=== PATIENT | male | born 2005 | race Caucasian/White ===

== ENCOUNTER 2024-03-20 10:28 | Emergency (ER) | payer SELFPAY ==
[2024-03-20] MEDS ORDERED: LORazepam 2 MG/ML VIAL ONE (11:10)
[2024-03-20] MEDS ORDERED: NA CHLORIDE 0.9% 1,000 ML ONE (11:10)
[2024-03-20 11:30] LABS: Absolute Lymphocytes (CBC) 1.6 K/uL (0.7-4.9); Absolute Monocytes 0.7 K/uL (0.1-1.3); Basophils % 0.4 % (0-1.3); Eosinophils % 0.1 % (0-4.4); Hematocrit 47.2 % (39.6-49.0); Hemoglobin 15.9 g/dL (13.6-17.9); Lymphocytes % 16.8 % (15.3-44.8); MCH 30.4 pg (27.0-35.0); MCHC 33.7 g/dL (32.0-36.0); MCV 90.1 fL (80-100); MPV 11.4 fL (7.6-11.3); Neutrophils % 74.7 % (41.7-73.7); Platelets 146 thou/uL (152-406); RBC Red Blood Cell Count 5.24 M/uL (4.33-5.43); Red Cell Distribution Width 12.7 % (12.1-15.2)
[2024-03-20 11:38] LABS: PT Prothrombin Time 12.7 SECONDS (9.4-12.5); Protime INR 1.14
[2024-03-20 11:39] LABS: PTT, Activated Partial Thromb 30.1 SECONDS (24.3-36.9)
[2024-03-20 11:52] LABS: ALT/SGPT 42 U/L (16-61); AST/SGOT 55 U/L (15-37); Albumin 4.2 g/dL (3.4-5.0); Albumin/Globulin Ratio 1.3 (1.1-1.8); Alkaline Phosphatase 85 U/L (45-117); Anion Gap 8.2 mEq/L (5.0-15.0); BUN Blood Urea Nitrogen 10 mg/dL (7-18); Bicarbonate 29 mEq/L (21-32); Bilirubin Direct 0.2 mg/dL (0-0.2); Bilirubin Indirect, Calculated 0.3 mg/dL (0.2-0.8); Bilirubin Total 0.5 mg/dL (0.2-1.0); Globulin 3.3 g/dL (2.3-3.5); Glomerular Filtration Rate 131 ml/min (=/>90); Glucose Level 120 mg/dL (74-106); Potassium 3.2 mEq/L (3.5-5.1); Protein, Total 7.5 g/dL (6.4-8.2); Sodium Level 137 mEq/L (136-145)
--- NOTE | 2024-03-20 15:38 | ER ---
Nurse's Notes [facility] Name: Brandt Tracey Age: 18 yrs Sex: Male : 2005 Arrival Date: 03/20/2024 Time: 10:28 Bed 5 Private MD: Diagnosis: Adverse effect of synthetic marijuana;Adverse effect of dextromethorphan overdose, intentional, recreational Presentation: 03/20 10:51 Chief complaint: Parent and/or Guardian states: pt took 600 mg of dextromethorphan on iw Tuesday to get high, he has been hallucinating and not sleeping since then, feels paranoid, also has been hitting his weed pen , denies SI or HI. Coronavirus screen: At this time, the client does not indicate any symptoms associated with coronavirus-19. Ebola Screen: No symptoms or risks identified at this time. Initial Sepsis Screen: Does the patient meet any 2 criteria? No. Patient's initial sepsis screen is negative. Does the patient have a suspected source of infection? No. Patient's initial sepsis screen is negative. Risk Assessment: Do you want to hurt yourself or someone else? Patient reports no desire to harm self or others. Onset of symptoms was March 17, 2024. 10:51 Method Of Arrival: Ambulatory iw 10:51 Acuity: BRIGETTE 3 iw Historical: - Allergies: 10:54 No Known Allergies; iw - Home Meds: 10:54 None [Active]; iw - PMHx: 10:54 None; iw - PSHx: 10:54 None; iw - Immunization history:: Adult Immunizations up to date. - Infectious Disease History:: Denies. - Family history:: not pertinent. - Hospitalizations: : No recent hospitalization is reported. - Social history:: Smoking status: Patient denies any tobacco usage or history of. Screenin:48 [facility] ED Fall Risk Assessment (Adult) History of falling in the last 3 months, mb9 including since admission No falls in past 3 months (0 pts) Confusion or Disorientation No (0 pts) Intoxicated or Sedated No (0 pts) Impaired Gait No (0 pts) Mobility Assist Device Used No (0 pt) Altered Elimination No (0 pt) Score/Fall Risk Level 0 - 2 = Low Risk Oriented to surroundings, Maintained a safe environment, Educated pt \T\ family on fall prevention, incl call for assistance when getting out of bed. Abuse screen: Denies threats or abuse. Nutritional screening: No deficits noted. Tuberculosis screening: No symptoms or risk factors identified. Assessment: 14:34 Reassessment: Patient appears in no apparent distress at this time. Patient and/or mb9 family updated on plan of care and expected duration. Pain level reassessed. Patient is alert, oriented x 3, equal unlabored respirations, skin warm/dry/pink. Vital Signs: 10:51 BP 164 / 97; Pulse 102; Resp 16; Temp 98.1; Pulse Ox 98% on R/A; Weight 72.57 kg; iw Height 5 ft. 8 in. ; 12:35 BP 152 / 79; Pulse 99; Resp 18; Pulse Ox 100% on R/A; mb9 16:08 BP 133 / 73; Pulse 85; Resp 18; Pulse Ox 100% on R/A; mb9 10:51 Body Mass Index 24.33 (72.57 kg, 172.72 cm) iw ED Course: 10:33 Patient arrived in ED. mr 10:34 Kodak Mackenzie MD is Attending Physician. rn 10:35 Brad Huerta, THEODORA is Primary Nurse. bp 10:54 Triage completed. iw 11:05 Poison control was notified. Spoke with [facility] #[phone]. [facility] 11:48 Bed in low position. Call light in reach. Side rails up X 1. Adult w/ patient. Provided joana Education on: press call light if needing anything. Client placed on continuous cardiac and pulse oximetry monitoring. NIBP monitoring applied. basket person on. 11:48 Initial lab(s) drawn, by ED staff, sent to lab. EKG done, by ED staff, reviewed by joana Mackenzie MD. Inserted saline lock: 20 gauge in right forearm, using aseptic technique. Blood collected. Flushed with 10 mL NS. 11:49 Arm band placed on. mb9 16:08 No provider procedures requiring assistance completed. IV discontinued, intact, mbLeora bleeding controlled, No redness/swelling at site. Pressure dressing applied. Administered Medications: 11:40 Drug: Ativan IVP 1 mg IVP once Route: IVP; Site: right forearm; mb9 16:08 Follow up: Response: No adverse reaction mb9 11:47 Drug: NS 0.9% IV 1000 ml IV at 1000 ml once Route: IV; Rate: 1000 ml; Site: right mb9 forearm; 16:08 Follow up: Response: No adverse reaction; IV Status: Completed infusion mb9 Medication: 11:48 VIS not applicable for this client. [email or web address] Outcome: 15:38 Discharge ordered by . theodora 16:08 Discharged to home ambulatory, with family, joana 16:08 Condition: stable 16:08 Discharge instructions given to patient, Instructed on discharge instructions, follow up and referral plans. Demonstrated understanding of instructions, follow-up care, 16:09 Patient left the ED. [email or web address] Signatures: Iza Dobson, Reg Reg mr Cary Roe, RN RN Kodak Haynes MD MD rn Peltier, Brian, RN RN bp Wilkerson, Mary Beth, RN RN mb9 Reddick, Jess [facility]
--- NOTE | 2024-03-20 15:38 | EDPHYS ---
Physician Documentation [facility] Name: Brandt Tracey Age: 18 yrs Sex: Male : 2005 Arrival Date: 03/20/2024 Time: 10:28 Bed 5 Private MD: ED Physician Kodak Mackenzie HPI: 03/20 11:02 This 18 yrs old Male presents to ER via Ambulatory with complaints of trouble sleeping. rn 11:02 The patient presents with agitation, Paranoia and hallucinations. Onset: The rn symptoms/episode began/occurred 3 day(s) ago. Possible causes: drug use. The patient has not experienced similar symptoms in the past. Patient reports has been vaping marijuana, not sure if it was laced with something else, also took 600 mg of dextromethorphan and tablet form 3 days ago. Same day he took the dextromethorphan noticed hallucinations, paranoia, palpitations and diaphoresis. Patient states diaphoresis and palpitations have improved, is not currently having hallucinations but feels paranoid and is having trouble sleeping. Has taken dextromethorphan in the past without these symptoms. This is what leads him to believe that the marijuana was laced with something else. No previous psychiatric history. No other medical problems.. 15:38 Patient reports the dextromethorphan overdose was recreational, trying to get high.. rn Historical: - Allergies: 10:54 No Known Allergies; iw - Home Meds: 10:54 None [Active]; iw - PMHx: 10:54 None; iw - PSHx: 10:54 None; iw - Immunization history:: Adult Immunizations up to date. - Infectious Disease History:: Denies. - Family history:: not pertinent. - Hospitalizations: : No recent hospitalization is reported. - Social history:: Smoking status: Patient denies any tobacco usage or history of. ROS: 11:02 Constitutional: Negative for fever, chills, and weight loss, Cardiovascular: Positive rn for palpitations Respiratory: Negative for shortness of breath, cough, wheezing, and pleuritic chest pain, Abdomen/GI: Negative for abdominal pain, nausea, vomiting, diarrhea, and constipation, Back: Negative for injury and pain, MS/Extremity: Negative for injury and deformity, Skin: Negative for injury, rash, and discoloration, Neuro: Negative for headache, weakness, numbness, tingling, and seizure, Psych: Negative for depression, suicide ideation, homicidal ideation Exam: 11:02 Constitutional: This is a well developed, well nourished patient who is awake, alert, rn and in no acute distress. ENT: Dry mucous membranes Cardiovascular: Tachycardic, regular Respiratory: No increased work of breathing, no retractions or nasal flaring. Abdomen/GI: Soft, non-tender MS/ Extremity: Pulses equal, no cyanosis. Neuro: Awake and alert, GCS 15, oriented to person, place, time, and situation. Cranial nerves II-XII grossly intact. Motor strength 5/5 in all extremities. Sensory grossly intact. 11:45 ECG was reviewed by the Attending Physician. rn Vital Signs: 10:51 BP 164 / 97; Pulse 102; Resp 16; Temp 98.1; Pulse Ox 98% on R/A; Weight 72.57 kg; iw Height 5 ft. 8 in. ; 12:35 BP 152 / 79; Pulse 99; Resp 18; Pulse Ox 100% on R/A; mb9 16:08 BP 133 / 73; Pulse 85; Resp 18; Pulse Ox 100% on R/A; mb9 10:51 Body Mass Index 24.33 (72.57 kg, 172.72 cm) iw MDM: 10:34 Patient medically screened. rn 15:36 Differential Diagnosis: electrolyte abnormality, hypoglycemia, volume depletion, rn Adverse effect of drug use. Data reviewed: vital signs, nurses notes, lab test result(s), EKG, and as a result, I will discharge patient. Counseling: I had a detailed discussion with the patient and/or guardian regarding the historical points, exam findings, and any diagnostic results supporting the discharge/admit diagnosis, lab results, the need for outpatient follow up, to return to the emergency department if symptoms worsen or persist or if there are any questions or concerns that arise at home. Special discussion: I discussed with the patient/guardian in detail that at this point there is no indication for admission to the hospital. It is understood, however, that if the symptoms persist or worsen the patient needs to return immediately for re-evaluation. Based on the history and exam findings, there is no indication for further emergent testing or inpatient evaluation. I discussed with the patient/guardian the need to see the primary care provider for further evaluation of the symptoms. ED course: Patient improved after Ativan, normalization of vital signs after some rest. Patient feels much better. No active hallucinations. No suicidal or homicidal ideation. Patient is going home with family, return precautions given and understood. Observed here for 5 hours, recommend cessation of drug use. Family state that he does not have history of psychiatric problems, although seems secondary to either marijuana with additional additive since it is synthetic marijuana that he vaped or the dextromethorphan overdose. Likely the combination of the 2.. 03/20 10:53 Order name: Acetaminophen; Complete Time: 12:14 rn 03/20 10:53 Order name: Basic Metabolic Panel; Complete Time: 12:14 rn 03/20 10:53 Order name: CBC with Diff; Complete Time: 12:14 rn 03/20 10:53 Order name: ETOH Level; Complete Time: 12:14 rn 03/20 10:53 Order name: Hepatic Function; Complete Time: 12:14 rn 03/20 10:53 Order name: PT-INR; Complete Time: 12:14 rn 03/20 10:53 Order name: Ptt, Activated; Complete Time: 12:14 rn 03/20 10:53 Order name: Salicylate; Complete Time: 12:14 rn 03/20 10:53 Order name: EKG - Nurse/Tech; Complete Time: 11:47 rn 03/20 10:53 Order name: IV Saline Lock; Complete Time: 11:47 rn 03/20 10:53 Order name: Labs collected and sent; Complete Time: 11:47 rn EC:45 Rate is 101 beats/min. Rhythm is regular. QRS [place] is Normal. DC interval is normal. rn QRS interval is normal. No Q waves. T waves are Normal. Clinical impression: Sinus tachycardia. Interpreted by me. Reviewed by me. Administered Medications: 11:40 Drug: Ativan IVP 1 mg IVP once Route: IVP; Site: right forearm; mb9 16:08 Follow up: Response: No adverse reaction mb9 11:47 Drug: NS 0.9% IV 1000 ml IV at 1000 ml once Route: IV; Rate: 1000 ml; Site: right mb9 forearm; 16:08 Follow up: Response: No adverse reaction; IV Status: Completed infusion mb9 Disposition Summary: 03/20/24 15:38 Discharge Ordered Notes: Location: Home rn Problem: new rn Symptoms: have improved rn Condition: Stable rn Diagnosis - Adverse effect of synthetic marijuana rn - Adverse effect of dextromethorphan overdose, intentional, recreational rn Followup: rn - With: Private Physician - When: As needed - Reason: Recheck today's complaints, Re-evaluation by your physician Discharge Instructions: - Discharge Summary Sheet rn - Illegal Drug Use Information, Adult rn Forms: - Medication Reconciliation Form rn - Antibiotic rn delivery - Prescription Opioid Use rn - Patient Portal Instructions rn - Leadership Thank You Letter rn Signatures: Dispatcher [employer] EDCary Ruiz, RN Kodak Sarmiento MD MD rn Wilkerson, Iza Sloan, RN RN mb9 Corrections: (The following items were deleted from the chart) 10:54 10:54 ACETAMINOPHEN+C.LAB.BRZ ordered. EDMS EDMS 10:54 10:54 BASIC METABOLIC PANEL+C.LAB.BRZ ordered. EDMS EDMS 10:54 10:54 CBC+H.LAB.BRZ ordered. EDMS EDMS 10:54 10:54 ETHANOL+C.LAB.BRZ ordered. EDMS EDMS 10:54 10:54 HEPATIC FUNCTION+C.LAB.BRZ ordered. EDMS EDMS 10:54 10:54 PROTIME (+INR)+COAG.LAB.BRZ ordered. EDMS EDMS 10:54 10:54 PTT, ACTIVATED+COAG.LAB.BRZ ordered. EDMS EDMS 10:54 10:54 SALICYLATE+C.LAB.BRZ ordered. EDMS EDMS 10:54 10:54 URINE DRUG SCREEN+UC.LAB.BRZ ordered. EDMS EDMS
[2024-03-20 16:17] VITALS: TEMP 98.1
[2024-03-20 16:19] VITALS: O2SAT 100
[2024-03-20 16:20] VITALS: BP 133/73
--- NOTE | 2024-03-21 12:10 | EKG ---
Test Date: 2024-03-20 Test Time: 11:39:24 Global Account Director: MB MEASUREMENT RESULTS: Intervals: Rate: 101 IL: 132 QRSD: 96 QT: 340 QTc: 440 [place]aly: P: 83 IL: 132 QRS: 77 T: 77 INTERPRETIVE STATEMENTS: Sinus tachycardia Otherwise normal ECG No previous ECG available for comparison Electronically Signed On 03-21-24 12:07:22 CDT by Varghese Mejía
== END 2024-03-20 16:09 | disposition home or self-care (01) ==
LOC: ER 10:28
DX: F22 Delusional disorders (principal); T40.715A Adverse effect of cannabis, initial encounter; T48.3X5A Adverse effect of antitussives, initial encounter
CPT/HCPCS: 36415; 80048; 80076; 80143; 80179; 82077; 85025; 85610; 85730; 93005; 96361; 96374; 99285; J7030